=== PATIENT | female | born 1955 | race Caucasian/White ===

== ENCOUNTER → 2016-11-28 | Outpatient (CLI) | payer OTHER ==
[2016-11-28 09:55] LABS: FREE T4 (FREE THYROXINE) 1.39 ng/dL (0.93-1.71)
[2016-11-30 10:11] LABS: GROWTH HORMONE GH 0.04 ng/mL (())
[2016-12-03 08:20] LABS: IGF-1 LC/MS 29 ng/mL (37-208)
[2016-12-03 09:32] LABS: IGF1 ZSCORE -2.33 SD (())
== END ==
LOC: LAB 07:58
PROVIDERS: ATTEND Student in an Organized Health Care Education/Training Program
DX: D35.2 Benign neoplasm of pituitary gland (principal); R42 Dizziness and giddiness; E03.9 Hypothyroidism, unspecified
CPT/HCPCS: 36415; 82533; 82627; 83001; 83003; 84146; 84305; 84439; 84443; 84480

== ENCOUNTER → 2016-11-29 | Outpatient (CLI) | payer OTHER | LOC: LAB 08:11 | PROVIDERS: ATTEND Student in an Organized Health Care Education/Training Program | DX: D35.2 Benign neoplasm of pituitary gland (principal); R42 Dizziness and giddiness; E03.9 Hypothyroidism, unspecified | CPT/HCPCS: 82024 ==

== ENCOUNTER → 2016-12-01 | Outpatient (CLI) | payer OTHER ==
[2016-12-01 11:36] LABS: BLOOD UREA NITROGEN 16 mg/dL (7-22); BUN/CREATININE RATIO 22.85 (6-20); CALCIUM 9.9 mg/dL (8.7-10.7); CHLORIDE 101 meq/L (98-112); CREATININE 0.7 mg/dL (0.50-1.20); EST GLOMERULAR FILTRATION > 60 (>60 ml/min/1.73m(2)); GLUCOSE 325 mg/dL (78-110); POTASSIUM 4.1 meq/L (3.8-5.2); SODIUM 139 meq/L (135-145)
== END ==
LOC: LAB 10:43
PROVIDERS: ATTEND Student in an Organized Health Care Education/Training Program
DX: D35.2 Benign neoplasm of pituitary gland (principal)
CPT/HCPCS: 36415; 80048

== ENCOUNTER → 2016-12-13 | Outpatient (CLI) | payer OTHER | LOC: MMPC 11:11 | PROVIDERS: ATTEND Nurse Practitioner | DX: N95.2 Postmenopausal atrophic vaginitis (principal) | CPT/HCPCS: 99213 ==

== ENCOUNTER → 2016-12-17 | Outpatient (CLI) | payer OTHER ==
[2016-12-17 08:43] LABS: HEMOGLOBIN A1C 8.74 % (4.2-6.0); MEAN BLOOD GLUCOSE (CALC) 205.042 mg/dL
== END ==
LOC: LAB 08:20
PROVIDERS: ATTEND Family Medicine
DX: E11.9 Type 2 diabetes mellitus without complications (principal)
CPT/HCPCS: 36415; 83036

== ENCOUNTER 2017-04-01 22:50 | Emergency (ER) | payer OTHER ==
[2017-04-01] MEDS ORDERED: oxyCODONE-ACETAMINOPHEN 5-325 TAB PO ONE (23:03)
--- NOTE | 2017-04-01 23:08 | PDOC ---
Chest Pain HPI - General Chief Complaint: General Medical Stated Complaint: Right rib pain s/p fall Date Seen by Provider: 04/01/17 Time Seen by Provider: 23:04 Source: Patient, Spouse Exam Limitations: POSITIVE: No limitations Treatment Prior to Arrival: REPORTS: Other (Tylenol No. 4) Nurse's Notes Reviewed & Considered: Yes - History of Present Illness Initial Comments: This pleasant 61-year-old female comes in today with chief complaint of right anterior lateral rib pain. Approximately 1400 hrs. today patient was cleaning the floor around her toilet when she slipped and fell hitting the toilet just under her right breast. She comes in tonight because she is having difficulty sleeping unable to lay down because of the pain. In addition she is having difficulty with deep respirations because of pain. She denies any fever chills or sweats, nausea vomiting or diarrhea, no other symptoms. Body Location Affected: REPORTS: Chest Timing: REPORTS: Abrupt Duration: 4-6 hours Severity: Moderate Context: REPORTS: Other (Fall) Quality: REPORTS: "Pain", Sharpness, Throbbing, Tenderness Radiation: REPORTS: None Associated Symptoms: REPORTS: Shortness of Breath, Hurts to Breathe Modifying Factors: improves with: None Reported Similar Symptoms Previously: No Recently seen/treated/hospitalized: No Any Prior Injuries Related to Current Complaint?: No - Patient Home Medications Home Medications: Home Medications Duloxetine HCl [Cymbalta] 60 mg PO DAILY 06/22/14 Atorvastatin Calcium 1 tab PO DAILY #30 tab 12/16/16 Dexlansoprazole [Dexilant] 60 mg PO DAILY #30 cap 12/16/16 Duloxetine HCl [Cymbalta] 1 cap PO QD #30 cap 12/16/16 Ezetimibe [Zetia] 10 mg PO DAILY #30 tab 12/16/16 Levothyroxine Sodium 1 tab PO DAILY #30 tab 12/16/16 Losartan Potassium 1 tab PO DAILY #30 tab 12/16/16 Multivitamins,Ther W-Minerals [Vitamin And Minerals] 1 each PO QD #30 tab Sitagliptin Phosphate [Januvia] 1 tab PO DAILY #30 tab 12/16/16 Clopidogrel [Plavix] 75 mg PO DAILY 04/01/17 Dapagliflozin Propanediol [Farxiga] 10 mg PO DAILY 04/01/17 Prednisone 20 mg PO BID 04/01/17 - Patient Allergies Allergies/Adverse Reactions: Allergies Allergy/AdvReac Type Severity Reaction Status Date / Time propoxyphene HCl Allergy Unknown NOT Verified 04/01/17 22:58 [From Darvon] APPLICABLE Sulfa (Sulfonamide Allergy Unknown NOT Verified 04/01/17 22:58 Antibiotics) APPLICABLE Past Medical History - heen HEENT History: Denies History Cardiovascular History: Hypertension, Previous CO, Hyperlipidemia Respiratory History: Denies History Gastrointestinal History: GERD Genitourinary History: Recurrent UTI Endocrine History: Type 2 Diabetes (oral), Hypothyroidism Musculoskeletal History: Back Pain Neurological History: CVA, TIA Blood Disorders: Denies History Psychiatric History: Depression, Anxiety Disorders History of Sexually Transmitted Diseases: No Cancer History: Brain History of MDRO: No History of Other Communicable Diseases: No Alcohol Use: None Substance Use Type: None Previous Surgical History: Yes Anesthesia Reactions: No Significant Family History: No pertinent family hx ROS - Limitations ROS Limitations: No Limitations Constitution: REPORTS: Denies Symptoms Cardiovascular: REPORTS: Chest Pain (Right anterior lateral chest pain secondary to fall) Respiratory: REPORTS: Hurts To Breathe, Shortness Of Breath Neurological: REPORTS: Denies Neuro Symptoms Gastrointestinal: REPORTS: Denies GI Symptoms Endocrine: REPORTS: Denies Symptoms Musculoskeletal: REPORTS: Denies MS Symptoms Genitourinary: REPORTS: Denies Symptoms Eyes: REPORTS: Denies Symptoms ENT: REPORTS: Denies Symptoms Skin: REPORTS: Denies Skin Symptoms Lympathic: REPORTS: Denies Lympathic Symptoms Immunologic: POSITIVE: Denies Symptoms Psychiatric: POSITIVE: Denies Psych Symptoms Chest Pain PE - General Appearance General Appearance: REPORTS: Alert, Cooperative, No Evidence of Trauma, Mild Distress - HEENT HEENT: POSITIVE: Head Inspection Nml, Eyes Inspection Nml, Ears Inspection Nml, Nose Inspection Nml, PERRL, EOMI - Neck Neck: REPORTS: Normal Inspection - Respiratory Respiratory: REPORTS: No Respiratory Distress, Breath Sounds Normal, Splinting, Other (Tenderness over the anterior lateral chest wall at the level of T7 through T 10) - Cardiovascular Cardiovascular: REPORTS: Regular Rate and Rhythm, Heart Sounds Normal, No Murmur , No Gallop, No Friction Rub, No JVD - Abdomen Abdomen: Soft: (All Quadrants), Normal Bowel Sounds: (All Quadrants), Denies Tenderness: (All Quadrants) - Skin Skin: REPORTS: Intact, Normal For Race, Warm, Dry, No Rash - Extremities Extremity: Non-Tender: (All Extremities), Normal ROM: (All Extremities), Normal Inspection: (All Extremities), Pelvis Stable: (All Extremities) - Neurological / Psychological Neurological: POSITIVE: Affect Apporpriate, Oriented X3, Motor Normal, Sensation Normal Chest Pain Progress - Results Reviewed by me Xrays/CTs/US Reviewed by me: Yes Discussed with Radiologist: No - Patient's Progress Pain Medication Addressed: POSITIVE: Yes Re-Examine Time: 23:31 Status: POSITIVE: Improved MDM / ED Course: Patient was evaluated, radiographic examination was obtained. My review of chest x-ray shows no acute osseous abnormalities, and no acute cardiopulmonary decompensation. Next Assessment: Chest wall pain secondary to fall. Next Plan: Discharge home, Percocet, follow-up with primary care physician. Quality Measure Initiative: CAP: POSITIVE: CXR or CT - Consult Counseled: POSITIVE: Patient, Family, RE: Radiology Results, RE: DX, RE: Need for F/U Patient Care Time - Estimated PCT Patient Care Time (In Minutes): 20 Vital Signs - VS Reviewed Vital Signs Reviewed: Yes Discharge Clinical Impression: Rib pain on right side Discharge Disposition: Discharged to Home Condition: Stable Patient Instructions Given at Discharge: Chest Wall Pain (ED)
[2017-04-01 23:31] VITALS: RESP 18; TEMP 98.3
[2017-04-01] MEDS ORDERED: oxyCODONE-ACETAMINOPHEN 5-325 TAB PO SCH (23:45)
--- NOTE | 2017-04-02 09:07 | DI ---
XR RIBS W/PA CXR MIN 3VW,04/01/2017 11:34 PM: Clinical History: Pain Previous Exam: January 16, 2016 Findings: A routine rib series is performed, and demonstrate anatomic alignment without visible fractures. Ther e is no pneumothorax. There is no pleural effusion. The cardiomediastinum is unremarkable. Postsurgical changes are seen of the lumbar spine. The cervical spine demonstrates diffuse degenerative change. Impression: No rib fractures.
== END 2017-04-02 | disposition home or self-care (01) ==
LOC: ER 22:50
DX: R07.81 Pleurodynia (principal); R06.02 Shortness of breath; E11.9 Type 2 diabetes mellitus without complications; R07.9 Chest pain, unspecified; I10 Essential (primary) hypertension; E03.9 Hypothyroidism, unspecified
CPT/HCPCS: 71101; 99283

== ENCOUNTER → 2017-04-24 | Outpatient (CLI) | payer OTHER ==
[2017-04-24 09:03] LABS: BLOOD UREA NITROGEN 17 mg/dL (7-22); BUN/CREATININE RATIO 21.25 (6-20); CALCIUM 9.6 mg/dL (8.7-10.7); CHOL/HDL RATIO 5.54 RATIO (0-4.0); EST GLOMERULAR FILTRATION > 60 (>60 ml/min/1.73m(2)); HDL CHOLESTEROL 33 mg/dL (40-150); SERUM CHOLESTEROL 183 mg/dL (120-200)
[2017-04-24 10:22] LABS: CREATININE, URINE 63.9 MG/DL (15-500)
== END ==
LOC: LAB 08:05
PROVIDERS: ATTEND Student in an Organized Health Care Education/Training Program
DX: E11.42 Type 2 diabetes mellitus with diabetic polyneuropathy (principal); E78.2 Mixed hyperlipidemia
CPT/HCPCS: 36415; 80048; 80061; 82043

== ENCOUNTER → 2017-05-08 | Outpatient (CLI) | payer OTHER | LOC: LAB 10:57 | PROVIDERS: ATTEND Specialist | DX: R56.9 Unspecified convulsions (principal) | CPT/HCPCS: 36415; 82565; 84520 ==